=== PATIENT | female | born 1995 | race Caucasian/White ===

== ENCOUNTER 2016-08-27 05:17 | Emergency (ER) | payer OTHER ==
[2016-08-27 05:36] VITALS: PULSE 87; RESP 18; TEMP 97.9
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
[2016-08-27 06:34] VITALS: BP 126/68
--- NOTE | 2016-08-27 06:40 | XR ---
EXAM: XR Right Shoulder Complete, 2 or More Views CLINICAL HISTORY: injury TECHNIQUE: Two or more views of the right shoulder. COMPARISON: No relevant prior studies available. FINDINGS: Bones/joints: Unremarkable. No acute fracture. No dislocation. Soft tissues: Unremarkable. IMPRESSION: Normal right shoulder x-rays.
== END 2016-08-27 07:15 | disposition home or self-care (01) ==
LOC: EC 05:17
DX: S49.91XA Unspecified injury of right shoulder and upper arm, initial encounter (principal); V86.59XA Driver of other special all-terrain or other off-road motor vehicle injured in nontraffic accident, initial encounter; Y92.89 Other specified places as the place of occurrence of the external cause
CPT/HCPCS: 99283

== ENCOUNTER 2016-09-08 08:32 | Inpatient (IN) | payer MEDICAID, OTHER ==
[2016-09-08] MEDS ORDERED: SODIUM CHLORIDE 0.9% 1,000 ML IV STA ×2 (08:42→10:19)
--- NOTE | 2016-09-08 08:48 | ED ---
Psych HPI - General Source: patient, RN notes reviewed Mode of arrival: ambulatory <Sara Scott - Last Filed: 09/08/16 14:32> <Shlomo Justin - Last Filed: 09/08/16 14:52> - General Chief Complaint: Psychiatric Symptoms Stated Complaint: mental health Time Seen by Provider: 09/08/16 08:38 - History of Present Illness Initial Comments: 21-year-old female presents to the emergency department with a chief complaint of overdose in an attempt to kill herself. Patient states that her boyfriend broke up with her left eye and she took some [id number] medication that would help her sleep. Patient does not know how many she took she does not know what it is that she took. Patient states she woke up this morning feeling fine but now she is very jittery and shaky. Patient states that she is no longer suicidal. Patient states she's never tried this in the past. Patient denies any psychiatric history. Patient states she was concerned due to her shakiness this morning so she thought that she should be evaluated. Patient has no idea what it was that she took. Patient denies any recent fever, chills, shortness of breath, chest pain, back pain, abdominal pain, nausea vomiting, numbness or tingling, dysuria or hematuria, constipation or diarrhea, headaches or visual changes, or any other current symptoms. (Sara Scott) - Related Data Home Medications Medication Instructions Recorded Confirmed No Known Home Medications [No 09/08/16 09/08/16 Known Home Medications] Allergies Allergy/AdvReac Type Severity Reaction Status Date / Time No Known Allergies Allergy Verified 09/08/16 09:05 Review of Systems ROS Other: All systems not noted in ROS Statement are negative. <Sara Scott - Last Filed: 09/08/16 14:32> ROS Other: All systems not noted in ROS Statement are negative. <Shlomo Justin - Last Filed: 09/08/16 14:52> ROS Statement: Those systems with pertinent positive or pertinent negative responses have been documented in the HPI. Past Medical History Past Medical History: No Reported History History of Any Multi-Drug Resistant Organisms: None Reported Past Surgical History: No Surgical Hx Reported Past Psychological History: Anxiety, Depression Smoking Status: Current every day smoker Past Alcohol Use History: Occasional Past Drug Use History: Marijuana <Sara Scott - Last Filed: 09/08/16 14:32> General Exam Limitations: no limitations General appearance: alert, in no apparent distress Head exam: Present: atraumatic, normocephalic, normal inspection Eye exam: Present: normal appearance, PERRL, EOMI. Absent: scleral icterus, conjunctival injection, periorbital swelling ENT exam: Present: normal exam, mucous membranes moist Neck exam: Present: normal inspection. Absent: tenderness, meningismus, lymphadenopathy Respiratory exam: Present: normal lung sounds bilaterally. Absent: respiratory distress, wheezes, rales, rhonchi, stridor Cardiovascular Exam: Present: regular rate, tachycardia, normal heart sounds. Absent: systolic murmur, diastolic murmur, rubs, gallop, clicks GI/Abdominal exam: Present: soft, normal bowel sounds. Absent: distended, tenderness, guarding, rebound, rigid Neurological exam: Present: alert, oriented X3, CN II-XII intact. Absent: motor sensory deficit Psychiatric exam: Present: normal affect, normal mood Skin exam: Present: warm, dry, intact, normal color. Absent: rash <Sara Scott - Last Filed: 09/08/16 14:32> Medical Decision Making - Lab Data Result diagrams: 09/08/16 08:55 09/08/16 08:55 - EKG Data -: EKG Interpreted by De - Radiology Data Radiology results: report reviewed, image reviewed <Sara Scott - Last Filed: 09/08/16 14:32> - Lab Data Result diagrams: 09/08/16 08:55 09/08/16 08:55 <Shlomo Justin - Last Filed: 09/08/16 14:52> - Medical Decision Making 19-year-old female presents to the emergency department with a chief complaint of medication overdose. At this time after further conversation to the [facility] patient most likely did have a overdose on a substance of Benadryl. At this time patient's does have a low-grade temp with a mildly elevated white blood cell come. This time we do not have a source for his fever however everything so far does not show any acute process. At this time the patient was not evaluated psychiatry and they are going to be admitted for psychiatry care. ( Sara Scott) Patient was seen by mental health services, who will admit. Patient reevaluated by myself, Dr. Justin. Patient resting comfortably in bed. Abdomen soft and nontender. Patient is unclear why she may have fever. No source of fever evident at this time. Patient is medically stable. Patient does admit to feeling depressed this past week. Patient does admit to taking overdose of medication last night. Positive clinical certificate completed. (Shlomo Justin) - Lab Data Lab Results 09/08/16 09/08/16 09/08/16 Range/Units 08:40 08:40 08:40 WBC (3.8-10.6) k/uL RBC (3.80-5.40) m/uL Hgb (11.4-16.0) gm/dL Hct (34.0-46.0) % MCV (80.0-100.0) fL MCH (25.0-35.0) pg MCHC (31.0-37.0) g/dL RDW (11.5-15.5) % Plt Count (150-450) k/uL Neutrophils % % Lymphocytes % % Monocytes % % Eosinophils % % Basophils % % Neutrophils # (1.3-7.7) k/uL Lymphocytes # (1.0-4.8) k/uL Monocytes # (0-1.0) k/uL Eosinophils # (0-0.7) k/uL Basophils # (0-0.2) k/uL Sodium (137-145) mmol/L Potassium (3.5-5.1) mmol/L Chloride (98-107) mmol/L Carbon Dioxide (22-30) mmol/L Anion Gap mmol/L BUN (7-17) mg/dL Creatinine (0.52-1.04) mg/dL Est GFR (MDRD) Af Amer (>60 ml/min/1.73 sqM) Est GFR (MDRD) Non-Af (>60 ml/min/1.73 sqM) Glucose (74-99) mg/dL Calcium (8.4-10.2) mg/dL Total Bilirubin (0.2-1.3) mg/dL AST (14-36) U/L ALT (9-52) U/L Alkaline Phosphatase (38-126) U/L Creatine Kinase (30-135) U/L CK-MB (CK-2) (0.0-2.4) ng/mL Troponin I (0.000-0.034) ng/mL Total Protein (6.3-8.2) g/dL Albumin (3.5-5.0) g/dL Urine Color Yellow Urine Appearance Clear (Clear) Urine pH 6.5 (5.0-8.0) Ur Specific [place] 1.015 (1.001-1.035) Urine Protein Trace H (Negative) Urine Glucose (UA) Negative (Negative) Urine Ketones Negative (Negative) Urine Blood Negative (Negative) Urine Nitrite Negative (Negative) Urine Bilirubin Negative (Negative) Urine Urobilinogen <2.0 (<2.0) mg/dL Ur Leukocyte Esterase Negative (Negative) Urine HCG, Qual Not Detected (Not Detectd) Salicylates mg/dL Urine Opiates Screen Not Detected (NotDetected) Ur Oxycodone Screen Not Detected (NotDetected) Urine Methadone Screen Not Detected (NotDetected) Ur Propoxyphene Screen Not Detected (NotDetected) Acetaminophen ug/mL Ur Barbiturates Screen Not Detected (NotDetected) U Tricyclic Antidepress Not Detected (NotDetected) Ur Phencyclidine Scrn Not Detected (NotDetected) Ur Amphetamines Screen Detected H (NotDetected) U Methamphetamines Scrn Not Detected (NotDetected) U Benzodiazepines Scrn Not Detected (NotDetected) Urine Cocaine Screen Not Detected (NotDetected) U Marijuana (THC) Screen Detected H (NotDetected) Serum Alcohol mg/dL 09/08/16 09/08/16 09/08/16 Range/Units 08:55 08:55 08:55 WBC 16.0 H (3.8-10.6) k/uL RBC 4.47 (3.80-5.40) m/uL Hgb 12.8 (11.4-16.0) gm/dL Hct 37.9 (34.0-46.0) % MCV 84.7 (80.0-100.0) fL MCH 28.7 (25.0-35.0) pg MCHC 33.9 (31.0-37.0) g/dL RDW 13.1 (11.5-15.5) % Plt Count 350 (150-450) k/uL Neutrophils % 84 % Lymphocytes % 12 % Monocytes % 3 % Eosinophils % 1 % Basophils % 0 % Neutrophils # 13.4 H (1.3-7.7) k/uL Lymphocytes # 1.9 (1.0-4.8) k/uL Monocytes # 0.4 (0-1.0) k/uL Eosinophils # 0.1 (0-0.7) k/uL Basophils # 0.1 (0-0.2) k/uL Sodium 144 (137-145) mmol/L Potassium 4.2 (3.5-5.1) mmol/L Chloride 107 (98-107) mmol/L Carbon Dioxide 21 L (22-30) mmol/L Anion Gap 16 mmol/L BUN 13 (7-17) mg/dL Creatinine 0.82 (0.52-1.04) mg/dL Est GFR (MDRD) Af Amer >60 (>60 ml/min/1.73 sqM) Est GFR (MDRD) Non-Af >60 (>60 ml/min/1.73 sqM) Glucose 99 (74-99) mg/dL Calcium 9.8 (8.4-10.2) mg/dL Total Bilirubin 0.6 (0.2-1.3) mg/dL AST 28 (14-36) U/L ALT 32 (9-52) U/L Alkaline Phosphatase 103 (38-126) U/L Creatine Kinase (30-135) U/L CK-MB (CK-2) 0.5 (0.0-2.4) ng/mL Troponin I <0.012 (0.000-0.034) ng/mL Total Protein 8.8 H (6.3-8.2) g/dL Albumin 5.2 H (3.5-5.0) g/dL Urine Color Urine Appearance (Clear) Urine pH (5.0-8.0) Ur Specific [place] (1.001-1.035) Urine Protein (Negative) Urine Glucose (UA) (Negative) Urine Ketones (Negative) Urine Blood (Negative) Urine Nitrite (Negative) Urine Bilirubin (Negative) Urine Urobilinogen (<2.0) mg/dL Ur Leukocyte Esterase (Negative) Urine HCG, Qual (Not Detectd) Salicylates <1.0 mg/dL Urine Opiates Screen (NotDetected) Ur Oxycodone Screen (NotDetected) Urine Methadone Screen (NotDetected) Ur Propoxyphene Screen (NotDetected) Acetaminophen <10.0 ug/mL Ur Barbiturates Screen (NotDetected) U Tricyclic Antidepress (NotDetected) Ur Phencyclidine Scrn (NotDetected) Ur Amphetamines Screen (NotDetected) U Methamphetamines Scrn (NotDetected) U Benzodiazepines Scrn (NotDetected) Urine Cocaine Screen (NotDetected) U Marijuana (THC) Screen (NotDetected) Serum Alcohol <10 mg/dL 09/08/16 Range/Units 10:18 WBC (3.8-10.6) k/uL RBC (3.80-5.40) m/uL Hgb (11.4-16.0) gm/dL Hct (34.0-46.0) % MCV (80.0-100.0) fL MCH (25.0-35.0) pg MCHC (31.0-37.0) g/dL RDW (11.5-15.5) % Plt Count (150-450) k/uL Neutrophils % % Lymphocytes % % Monocytes % % Eosinophils % % Basophils % % Neutrophils # (1.3-7.7) k/uL Lymphocytes # (1.0-4.8) k/uL Monocytes # (0-1.0) k/uL Eosinophils # (0-0.7) k/uL Basophils # (0-0.2) k/uL Sodium (137-145) mmol/L Potassium (3.5-5.1) mmol/L Chloride (98-107) mmol/L Carbon Dioxide (22-30) mmol/L Anion Gap mmol/L BUN (7-17) mg/dL Creatinine (0.52-1.04) mg/dL Est GFR (MDRD) Af Amer (>60 ml/min/1.73 sqM) Est GFR (MDRD) Non-Af (>60 ml/min/1.73 sqM) Glucose (74-99) mg/dL Calcium (8.4-10.2) mg/dL Total Bilirubin (0.2-1.3) mg/dL AST (14-36) U/L ALT (9-52) U/L Alkaline Phosphatase (38-126) U/L Creatine Kinase 118 (30-135) U/L CK-MB (CK-2) (0.0-2.4) ng/mL Troponin I (0.000-0.034) ng/mL Total Protein (6.3-8.2) g/dL Albumin (3.5-5.0) g/dL Urine Color Urine Appearance (Clear) Urine pH (5.0-8.0) Ur Specific [place] (1.001-1.035) Urine Protein (Negative) Urine Glucose (UA) (Negative) Urine Ketones (Negative) Urine Blood (Negative) Urine Nitrite (Negative) Urine Bilirubin (Negative) Urine Urobilinogen (<2.0) mg/dL Ur Leukocyte Esterase (Negative) Urine HCG, Qual (Not Detectd) Salicylates mg/dL Urine Opiates Screen (NotDetected) Ur Oxycodone Screen (NotDetected) Urine Methadone Screen (NotDetected) Ur Propoxyphene Screen (NotDetected) Acetaminophen ug/mL Ur Barbiturates Screen (NotDetected) U Tricyclic Antidepress (NotDetected) Ur Phencyclidine Scrn (NotDetected) Ur Amphetamines Screen (NotDetected) U Methamphetamines Scrn (NotDetected) U Benzodiazepines Scrn (NotDetected) Urine Cocaine Screen (NotDetected) U Marijuana (THC) Screen (NotDetected) Serum Alcohol mg/dL 09/08/16 09:31 Sinus tachycardia 127 bpm, normal axis, no atopy, no S-T depressions or elevations, (Sara Scott) Disposition <Sara Scott - Last Filed: 09/08/16 14:32> <Shlomo Justin - Last Filed: 09/08/16 14:52> Clinical Impression: Intentional overdose of drug in tablet form, Fever Disposition: TRANSFER TO PSYCH HOSP/UNIT Condition: Stable Referrals: None,Stated [Primary Care Provider] - 1-2 days
[2016-09-08 09:28] LABS: Basophils # (A) 0.1 k/uL (0-0.2); Basophils % (A) 0 %; CH 28.7; Eosinophils # (A) 0.1 k/uL (0-0.7); Eosinophils % (A) 1 %; HCT 37.9 % (34.0-46.0); HDW 2.37; HGB 12.8 gm/dL (11.4-16.0); Luc # (Auto) 0.15; Luc % (Auto) 1; Lymphocytes # (A) 1.9 k/uL (1.0-4.8); Lymphocytes % (A) 12 %; MCH 28.7 pg (25.0-35.0); MCHC 33.9 g/dL (31.0-37.0); MCV 84.7 fL (80.0-100.0); Mean Platelet Volume 7.6; Monocytes # (A) 0.4 k/uL (0-1.0); Monocytes % (A) 3 %; Neutrophils # (A) 13.4 k/uL (1.3-7.7); Neutrophils % (A) 84 %; RBC 4.47 m/uL (3.80-5.40); RDW 13.1 % (11.5-15.5); WBC (Perox) 15.01
[2016-09-08 09:40] LABS: ALT 32 U/L (9-52); AST 28 U/L (14-36); Acetaminophen <10.0 ug/mL; Alcohol <10 mg/dL; Alkaline Phosphatase 103 U/L (38-126); Anion Gap 16 mmol/L; Blood Urea Nitrogen 13 mg/dL (7-17); Calcium 9.8 mg/dL (8.4-10.2); Carbon Dioxide 21 mmol/L (22-30); Chloride 107 mmol/L (98-107); Glucose 99 mg/dL (74-99); Non-African American GFR(MDRD) >60 (>60 ml/min/1.73 sqM); Potassium 4.2 mmol/L (3.5-5.1); Salicylate <1.0 mg/dL; Sodium 144 mmol/L (137-145); Total Bilirubin 0.6 mg/dL (0.2-1.3); Total Protein 8.8 g/dL (6.3-8.2)
[2016-09-08 10:10] LABS: Appearance,Urine Clear (Clear); Bilirubin,Urine Negative (Negative); Glucose,Urine (UA) Negative (Negative); Ketones,Urine Negative (Negative); Leukocyte Esterase,Urine Negative (Negative); Nitrite,Urine Negative (Negative); PH, Urine 6.5 (5.0-8.0); Protein,Urine Trace (Negative); Specific Gravity,Urine 1.015 (1.001-1.035); UA Billing (MACRO vs. MICRO) CHEM; Urobilinogen,Urine <2.0 mg/dL (<2.0)
--- NOTE | 2016-09-08 10:10 | XR ---
EXAMINATION TYPE: XR chest 2V DATE OF EXAM: 09/08/2016 COMPARISON: NONE INDICATION: Cough TECHNIQUE: Frontal and lateral views of the chest are obtained. FINDINGS: The heart size is normal. The pulmonary vasculature is normal. The lungs are clear. IMPRESSION: 1. No acute pulmonary process.
[2016-09-08] MEDS ORDERED: ACETAMINOPHEN TAB 500 MG TAB PO STA (10:19)
[2016-09-08 11:35] LABS: Creatine Kinase MB 0.5 ng/mL (0.0-2.4); Troponin I <0.012 ng/mL (0.000-0.034)
[2016-09-08] MEDS ORDERED: IBUPROFEN 600 MG TAB PO STA (12:04)
[2016-09-08] MEDS ORDERED: ZIPRASIDONE 20 MG VIAL IM PRN (15:26)
[2016-09-08] MEDS ORDERED: MAGNESIUM HYDROXIDE 2,400 MG/10 ML CUP PO PRN (15:26)
[2016-09-08] MEDS ORDERED: ACETAMINOPHEN TAB 325 MG TAB PO PRN (15:26)
[2016-09-08] MEDS ORDERED: LORazepam 1 MG TAB PO PRN (15:26)
[2016-09-08] MEDS ORDERED: MAG HYDROX/AL HYDROX/SIMETH 30 ML CUP PO PRN (15:26)
[2016-09-08] MEDS ORDERED: LORazepam 2 MG/ML SYRINGE IM PRN (15:29)
[2016-09-09] MEDS: NICOTINE 14MG/24HR PATCH TRANSDERM SCH (09:19)
--- NOTE | 2016-09-09 13:10 | P.MDCNMH ---
History of Present Illness H&P Date: 09/09/16 Chief Complaint: Medical management This is a 21-year-old female with no primary care physician. She has a past history of anxiety, depression, tobacco use and dependence. Patient apparently had a breakup with boyfriend yesterday and took an overdose of Benadryl 20 tablets to try to kill herself. She states that she was fighting with her boyfriend and took the pills. She slept during the night and then the next day she was told that she was acting weird. She states she was saying sentences that did not make any sense. She also had shakiness. She denies any suicidal ideation at this time. She came into [facility] emergency center for evaluation. She has not tried suicide in the past. Surprisingly, patient was found to have leukocytosis of 16 and temperature max 100.7. CK was 118, TSH 1.910. Urinalysis was clear with nitrate and leukoesterase negative. HCG was negative. Urine drug screen was positive for amphetamines and marijuana. Salicylate acetaminophen and alcohol levels were within normal limits. Chest x-ray showed no acute findings. Patient was admitted to the mental health unit. No clear etiology for fever and leukocytosis was found. CK was also 118. Review of Systems All systems: negative Constitutional: Denies chills, Denies fever Eyes: denies blurred vision, denies pain Ears, nose, mouth and throat: Denies headache, Denies sore throat Cardiovascular: Denies chest pain, Denies shortness of breath Respiratory: Denies cough Gastrointestinal: Denies abdominal pain, Denies diarrhea, Denies nausea, Denies vomiting Genitourinary: Denies dysuria, Denies hematuria Musculoskeletal: Denies myalgias Integumentary: Denies pruritus, Denies rash Neurological: Denies numbness, Denies weakness Psychiatric: Reports depression, Denies anxiety, Denies hopelessness, Denies suicidal ideation Endocrine: Denies fatigue, Denies weight change Past Medical History Past Medical History: No Reported History History of Any Multi-Drug Resistant Organisms: None Reported Past Surgical History: No Surgical Hx Reported Past Psychological History: Anxiety, Depression Smoking Status: Current every day smoker Past Alcohol Use History: Occasional Additional Past Alcohol Use History / Comment(s): Patient is a smoker of 2 cigarettes per day for one month. She states she uses marijuana occasionally. She also uses alcohol occasionally. Past Drug Use History: Marijuana - Past Family History Father Additional Family Medical History / Comment(s): Father is alive at age 49 with "heart problems ". Mother Additional Family Medical History / Comment(s): Mother is alive at age 47 with no major medical problems. Brother(s) Additional Family Medical History / Comment(s): Patient has 2 brothers and 1 sister with no major medical problems. Patient does not have any children. Medications and Allergies Home Medications Medication Instructions Recorded Confirmed Type No Known Home Medications [No 09/08/16 09/08/16 History Known Home Medications] Allergies Allergy/AdvReac Type Severity Reaction Status Date / Time No Known Allergies Allergy Verified 09/08/16 09:05 Physical Exam Vitals: Vital Signs Temp Pulse Pulse Resp BP BP Pulse Ox 09/09/16 06:32 98.3 F 93 16 135/89 98 09/08/16 16:09 99.4 F 113 H 16 131/91 100 09/08/16 15:09 99.8 F H 106 H 18 120/62 100 09/08/16 11:53 100.7 F H Gen: This is a 21-year-old female. She is cooperative and appears to be in no acute distress. HEENT: Head is atraumatic, normocephalic. Pupils equal, round. Sclerae is anicteric. NECK: Supple. No JVD. No lymphadenopathy. No thyromegaly. LUNGS: Clear to auscultation. No wheezes or rhonchi. No intercostal retractions. HEART: Regular rate and rhythm. No murmur. ABDOMEN: Soft. Bowel sounds are present. No masses. No tenderness. EXTREMITIES: No pedal edema. No calf tenderness. NEUROLOGICAL: Patient is awake, alert and oriented x3. Cranial nerves 2 through 12 are grossly intact. Cranial Nerve Examination - Cranial Nerves Cranial Nerve II- Optic: Intact Cranial Nerve III- Oculomotor: Intact Cranial Nerve IV- Trochlear: Intact Cranial Nerve V- Trigeminal: Intact Cranial Nerve - Abducens: Intact Cranial Nerve VII- Facial: Intact Cranial Nerve VIII- Auditory: Intact Cranial Nerve IX- Glossopharyngeal: Intact Cranial Nerve X- Vagus: Intact Cranial Nerve XI- Accessory: Intact Cranial Nerve XII- Hypoglossal: Intact Results CBC & Chem 7: 09/08/16 08:55 09/08/16 08:55 Assessment and Plan Plan: 1. Depression recurrent. Patient admitted to the mental health unit. Continue current plan of care. 2. Intentional overdose with Benadryl which can cause elevated white count and fever. Patient is currently stable. No signs of infection. A possible viral infection is not completely ruled out. Chest x-ray was normal and she has been afebrile since admission. Continue to monitor fever and recheck CBC in the morning. 3. Tobacco use and dependence. Continue nicotine patch. 4. History of marijuana use. Continue as in #1 . Impression and plan of care have been directed as dictated by the signing physician. Kaitlin Oswald nurse practitioner acting as scribe for signing physician.
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
[2016-09-09] MEDS: GABAPENTIN 100 MG CAP PO SCH ×2 (16:33→21:25)
[2016-09-09] MEDS: PARoxetine 10 MG TAB PO SCH (21:25)
[2016-09-10 05:47] VITALS: RESP 16
[2016-09-10 08:46] LABS: CH 28.3; CHCM 33.4; HCT 35.4 % (34.0-46.0); HDW 2.36; HGB 12.1 gm/dL (11.4-16.0); MCH 29.3 pg (25.0-35.0); MCHC 34.3 g/dL (31.0-37.0); MCV 85.2 fL (80.0-100.0); Mean Platelet Volume 7.4; RBC 4.15 m/uL (3.80-5.40); RDW 13.3 % (11.5-15.5); WBC 10.8 k/uL (3.8-10.6)
[2016-09-10] MEDS: GABAPENTIN 100 MG CAP PO SCH ×3 (08:52→21:02)
[2016-09-10] MEDS: NICOTINE 14MG/24HR PATCH TRANSDERM SCH (08:54)
--- NOTE | 2016-09-10 15:59 | P.PN ---
Progress Note - Text Date of service: 09/11/1999 Chief complaint: "I feel much better today" Subjective: The patient has been seen today as follow-up, chart reviewed, case discussed with the treatment team. The patient reports improvement of her mood and endorsed no suicidal or homicidal thoughts. She reports no depression and continued to endorse future oriented plans to continue counseling with therapist as outpatient. She was hoping to get back to her family at 12 of September holiday. She reports good sleep last night about 8 hrs and report no appetite problems. She reports has good concentration. She reports feeling difference with starting Neurontin and felt her anxiety is better controlled with less racing thoughts. The patient denies any manic symptoms. The patient denies any auditory or visual hallucinations. Also the patient denies any paranoid ideation. Review of other systems: Patient denies any physical symptoms besides what has been mentioned above. No breathing problems, no chest pain reported today. Objective: Vitals has been reviewed. Mental status examination: Appearance: The patient appears stated age, fair hygiene and groomed, no specific features. Gait/posture: Normal gait, Normal arm was swinging: No abnormal movements. Attitude and behavior: engaged, cooperative, normal eye contact. Motor activity: Normal psychomotor activity Speech: Normal rate rhythm and articulation Mood: "feeling good" Affect: Constricted Thought form: goal-directed, linear, coherent. Thought content: Non-delusional, denies suicidal thoughts, denies homicidal thoughts, denies intentions or plans. Perception: Denies any auditory or visual hallucinations Attention: No impairment. Patient was able to repeat serial 7. Orientation: Patient patient was fully oriented to time place person and situation. Insight: Patient has limited insight about his psychiatric disorder. Judgment: Patient has limited judgment about his psychiatric treatment. Assessment: Generalized anxiety disorder Adjustment disorder with mixed depression and anxiety. Unspecified depressive disorder Plan: Continue inpatient level of care to set up after care plan. Patient is showing improvement and stabilization to consider discharge. continue Paxil 10 mg by mouth at bedtime for anxiety and depression symptoms. Inc the Neurontin 100 mg by mouth 3 times a day for anxiety and post acute withdrawal symptoms to help the patient to quit alcohol drinking. Patient has been educated about alcohol use disorder and to monitor her alcohol drinking []
[2016-09-10 20:06] VITALS: BMI 26.4
[2016-09-10] MEDS: PARoxetine 10 MG TAB PO SCH (21:02)
[2016-09-11 06:56] VITALS: BP 117/67; PULSE 92; TEMP 97.7
[2016-09-11] MEDS: NICOTINE 14MG/24HR PATCH TRANSDERM SCH (08:43)
[2016-09-11] MEDS: GABAPENTIN 100 MG CAP PO SCH ×2 (08:43→15:44)
== END 2016-09-11 15:44 | disposition home or self-care (01) | DRG 882 ==
LOC: EC 08:32 → 3MHU 15:07
PROVIDERS: ADMIT Psychiatry & Neurology Psychiatry; ATTEND Psychiatry & Neurology Psychiatry
DX: F43.23 Adjustment disorder with mixed anxiety and depressed mood (principal); F10.239 Alcohol dependence with withdrawal, unspecified; D72.829 Elevated white blood cell count, unspecified; F17.200 Nicotine dependence, unspecified, uncomplicated; F41.0 Panic disorder [episodic paroxysmal anxiety]; Z91.5 Personal history of self-harm
CPT/HCPCS: 36415; 71020; 80053; 80306; 80320; 81003; 81025; 82075; 82550; 82553; 83520; 84443; 84484; 85025; 85027; 93005; 96360; 99285

== ENCOUNTER → 2017-05-07 | Outpatient (CLI) | payer SELFPAY | END | disposition home or self-care (01) | LOC: LABWHC1 15:12 | PROVIDERS: ATTEND Obstetrics & Gynecology | DX: Z34.80 Encounter for supervision of other normal pregnancy, unspecified trimester (principal); Z3A.00 Weeks of gestation of pregnancy not specified | CPT/HCPCS: 36415; 84702 ==

== ENCOUNTER 2017-10-01 11:42 | Outpatient (CLI) | payer BC, OTHER ==
[2017-10-01 12:44] VITALS: BP 130/81; PULSE 87; RESP 16; TEMP 97.3
--- NOTE | 2017-10-05 07:15 | P.MSEPDOC ---
Presenting Problems - Arrival Data Date of Arrival on Unit: 10/01/17 Time of Arrival on Unit: 12:40 Mode of Transport: Ambulatory - Complaint OB-Reason for Admission/Chief Complaint: Possible Onset of Labor Comment: pt reports with contractions every 8 hours Medical History - Information : 2 Para: 0 Term: 0 : 0 Abortions: Spontaneous or Elective: 1 Number of Living Children: 0 - Gestational Age Gestational Age by THO (wks/days): 39 Weeks and 2 Days Review of Systems - Review of Systems Constitutional: No problems Breast: No problems ENT: No problems Cardiovascular: No problems Respiratory: No problems Gastrointestinal: No problems Genitourinary: No problems Musculoskeletal: No problems Neurological: No problems Skin: No problems Vital Signs - Temperature Temperature: 97.3 F Temperature Source: Temporal Artery Scan - Pulse Supine Pulse Rate: 87 Pulse Assessment Method: Automatic Cuff - Respirations Respiratory Rate: 16 Oxygen Delivery Method: Room Air - Blood Pressure Left Arm Blood Pressure: 130/81 Blood Pressure Mean: 97 Blood Pressure Source: Automatic Cuff Medical Screen Scoring (Pre) - Cervical Exam Dilation: 0 cm = 0 - Uterine Contractions Frequency: N/A Duration: N/A - Maternal Vital Signs Maternal Temperature: N/A - Pain Assessment Pain Intensity: 0 Pain Management Goal: 0 Pain Duration: 0 - Assessment Baseline FHR: 140 Heart Rate - NICHD Category: Category I (Normal) = 0 - Total Score Total Score (Pre): 0 - Level of Risk Level of Risk: N/A Physician Notification (Pre) - Physician Notified Physician Notified Date: 10/01/17 Physician Notified Time: 12:44 Physician/Practitioner Notifed:: dr brooks New Order Received: Yes - Notification Comment Comment: discharge instructions Disposition - Disposition OB Disposition: Discharge to home Transferred to:: home Discharge Date: 10/01/17 Discharge Time: 12:44 I agree with the RN Medical Screening Exam: Yes Risk & Benefit of care provided described in d/c instruction: Yes Diagnosis: FALSE LABOR AT OR AFTER 37 COMPLETED WEEKS OF GESTATION
== END 2017-10-01 13:32 | disposition home or self-care (01) ==
LOC: FBPOP 11:42
PROVIDERS: ATTEND Obstetrics & Gynecology
DX: O47.1 False labor at or after 37 completed weeks of gestation (principal); Z3A.39 39 weeks gestation of pregnancy
CPT/HCPCS: 59025; 99213

== ENCOUNTER 2017-10-01 23:12 | Inpatient (IN) | payer BC, OTHER ==
[2017-10-02] MEDS ORDERED: METHYLERGONOVINE 0.2 MG/ML 1 ML AMP IM PRN (01:47)
[2017-10-02] MEDS ORDERED: BUTORPHANOL 1 MG/ML 1 ML VIAL IV PRN (01:47)
[2017-10-02] MEDS ORDERED: OXYTOCIN 10 UNIT/ML 1 ML VIAL IM PRN (01:47)
[2017-10-02] MEDS ORDERED: TERBUTALINE 1 MG/ML VIAL SQ PRN (01:47)
[2017-10-02] MEDS ORDERED: LIDOCAINE 1% (PF) 10 MG/ML (30 ML SDV) SQ PRN (01:47)
[2017-10-02] MEDS ORDERED: CARBOPROST TROMETHAMINE 250 MCG/ML 1 ML AMP IM PRN (01:47)
[2017-10-02] MEDS: LACTATED RINGERS 1,000 ML IV SCH ×3 (02:20→10:01)
[2017-10-02 02:30] VITALS: BMI 30.5
[2017-10-02 02:31] LABS: Basophils % (A) 0 %; Eosinophils # (A) 0.2 k/uL (0-0.7); Eosinophils % (A) 2 %; HCT 34.3 % (34.0-46.0); HGB 11.4 gm/dL (11.4-16.0); Lymphocytes % (A) 15 %; MCH 27.1 pg (25.0-35.0); MCHC 33.3 g/dL (31.0-37.0); MCV 81.6 fL (80.0-100.0); Mean Platelet Volume 8.4; Monocytes # (A) 0.7 k/uL (0-1.0); Monocytes % (A) 5 %; Neutrophils # (A) 10.4 k/uL (1.3-7.7); Neutrophils % (A) 77 %; Platelet Count 206 k/uL (150-450); RDW 14.9 % (11.5-15.5); WBC 13.5 k/uL (3.8-10.6)
[2017-10-02] MEDS ORDERED: SODIUM CHLORIDE 0.9% 100 ML BAG ONE (04:49)
[2017-10-02] MEDS ORDERED: ROPIVACAINE 5MG/ML 20ML VIAL ONE (04:49)
[2017-10-02] MEDS ORDERED: fentaNYL (PF) 50 MCG/ML 5 ML AMP ONE (04:49)
[2017-10-02] MEDS: OXYTOCIN 20 UNITS/1000 ML NS 1,000 ML IV SCH (07:15)
[2017-10-02] MEDS ORDERED: ZOLPIDEM 5 MG TAB PO PRN (12:49)
[2017-10-02] MEDS ORDERED: HYDROCORTISONE 2.5% RECTAL CREAM 30 GM TUBE RECTAL PRN (12:49)
[2017-10-02] MEDS ORDERED: LANOLIN CREAM 5 GM TUBE TOPICAL PRN (12:49)
[2017-10-02] MEDS ORDERED: diphenhydrAMINE 25 MG CAP PO PRN (12:49)
[2017-10-02] MEDS ORDERED: HYDROcodone/APAP 7.5-325MG 1 EACH TAB PO PRN (12:49)
[2017-10-02] MEDS ORDERED: BENZOCAINE/MENTHOL SPRAY 1 GM/SPRAY AEROSOL TOPICAL PRN (12:49)
[2017-10-02] MEDS ORDERED: WITCH HAZEL 1 EACH MED..PAD TOPICAL PRN (12:49)
[2017-10-02] MEDS ORDERED: diphenhydrAMINE 50 MG CAP PO PRN (12:49)
[2017-10-02] MEDS ORDERED: diphenhydrAMINE 50 MG/ML 1 ML VIAL IVP PRN ×2 (12:49)
[2017-10-02] MEDS ORDERED: SIMETHICONE 80 MG CHEWABLE PO PRN (12:49)
[2017-10-02] MEDS ORDERED: ACETAMINOPHEN TAB 325 MG TAB PO PRN (12:49)
--- NOTE | 2017-10-02 12:54 | P.PROBDLV ---
Vaginal Delivery Note - . Vaginal Delivery Note: 22-year-old presented at 39 weeks and 3 days in labor. Her cervix was 3 cm dilated when she presented and it changed in triage to 4 cm dilated, 90% effaced, and -2 station. She is hussain every 2-5 minutes. heart tones 135-140 with moderate variability and reactive. She was uncomfortable and did get an epidural for pain management. When she was 6 cm she got an epidural and was comfortable. Amniotomy was performed at 9 AM clear fluid noted. Her cervix was completely dilated at 1210, she pushed, delivered a viable male over intact perineum under epidural anesthesia at 12:35 PM. Head delivered OA, anterior shoulder which was the right shoulder delivered gentle downward guidance followed by posterior shoulder and rest of body. Nose and mouth bulb suctioned, cord clamped and cut, placed on mother's abdomen. Apgars 8, 9, weight 6 lbs. 8 oz. Placenta delivered spontaneously, intact with three-vessel cord at 12:37 PM. Vagina, cervix, and perineum were inspected. First-degree right lateral vaginal laceration was repaired with 3-0 Vicryl. Estimated blood loss 200 mL. Mother and baby in stable condition.
--- NOTE | 2017-10-02 12:59 | P.HPOB ---
History of Present Illness H&P Date: 10/02/17 Chief Complaint: Labor 22-year-old presented at 39 weeks and 3 days in labor. Her cervix changed from 3 cm to 4 centers dilated in triage, 90% effaced, and -2 station. She is hussain every 2-5 minutes. heart tones 130-135 with moderate variability and reactive. Review of Systems All systems: negative Constitutional: Denies chills, Denies fever Eyes: denies blurred vision, denies pain Ears, nose, mouth and throat: Denies headache, Denies sore throat Cardiovascular: Denies chest pain, Denies shortness of breath Respiratory: Denies cough Gastrointestinal: Denies abdominal pain, Denies diarrhea, Denies nausea, Denies vomiting Genitourinary: Denies dysuria, Denies hematuria Musculoskeletal: Denies myalgias Integumentary: Denies pruritus, Denies rash Neurological: Denies numbness, Denies weakness Psychiatric: Denies anxiety, Denies depression Endocrine: Denies fatigue, Denies weight change Past Medical History Past Medical History: No Reported History History of Any Multi-Drug Resistant Organisms: None Reported Past Surgical History: No Surgical Hx Reported Past Psychological History: Anxiety, Depression Smoking Status: Former smoker Past Alcohol Use History: Occasional Additional Past Alcohol Use History / Comment(s): Patient is a smoker of 2 cigarettes per day for one month. She states she uses marijuana occasionally. She also uses alcohol occasionally. Past Drug Use History: Marijuana - Past Family History Father Family Medical History: Chest Pain / Angina Additional Family Medical History / Comment(s): Father is alive at age 49 with "heart problems ". Mother Family Medical History: No Reported History Additional Family Medical History / Comment(s): Mother is alive at age 47 with no major medical problems. Brother(s) Family Medical History: No Reported History Additional Family Medical History / Comment(s): Patient has 2 brothers and 1 sister with no major medical problems. Patient does not have any children. Medications and Allergies Home Medications Medication Instructions Recorded Confirmed Type Pnv No.95/Ferrous Fum/Folic AC 1 each PO DAILY 10/01/17 10/01/17 History [ Multivitamin Tablet] Sertraline [Zoloft] 50 mg PO DAILY 10/01/17 10/01/17 History Allergies Allergy/AdvReac Type Severity Reaction Status Date / Time No Known Allergies Allergy Verified 10/01/17 23:24 Exam Osteopathic Statement: *. No significant issues noted on an osteopathic structural exam other than those noted in the History and Physical/Consult. Vital Signs Temp Pulse Resp BP Pulse Ox 10/02/17 01:46 98.6 F 88 16 124/86 97 Intake and Output 10/01/17 10/02/17 10/02/17 22:59 06:59 14:59 Other: # Voids 1 Weight 75.75 kg Heart: Regular rate and rhythm Lungs: Clear to auscultation bilaterally Abdomen: Soft, nontender Extremities: Negative Homans sign Results Result Diagrams: 10/02/17 02:15 Abnormal Lab Results - Last 24 Hours (Table) 10/02/17 Range/Units 02:15 WBC 13.5 H (3.8-10.6) k/uL Neutrophils # 10.4 H (1.3-7.7) k/uL Assessment and Plan (1) Normal labor Current Visit: Yes Status: Acute Code(s): O80 - ENCOUNTER FOR FULL-TERM UNCOMPLICATED DELIVERY; Z37.9 - OUTCOME OF DELIVERY, UNSPECIFIED SNOMED Code(s ): 33152736 Plan: 1. Admit to family place 2. Expectant management 3. Anticipate normal vaginal delivery
[2017-10-02] MEDS ORDERED: OXYTOCIN 20 UNITS/1000 ML NS 1,000 ML IV SCH (13:00)
[2017-10-02 17:42] VITALS: RESP 16
[2017-10-03] MEDS: IBUPROFEN 600 MG TAB PO PRN ×2 (00:10→12:26)
[2017-10-03] MEDS: SENNOSIDES-DOCUSATE SODIUM 1 EACH TAB PO SCH ×2 (00:11→09:55)
[2017-10-03] MEDS: OXYTOCIN 20 UNITS/1000 ML NS 1,000 ML IV SCH (05:40)
--- NOTE | 2017-10-03 08:50 | P.DS ---
Providers Date of admission: 10/02/17 01:45 Expected date of discharge: 10/03/17 Attending physician: Naye Lilly Primary care physician: Stated None - Discharge Diagnosis(es) (1) Normal labor Current Visit: Yes Status: Resolved (2) Normal vaginal delivery Current Visit: Yes Status: Acute Hospital Course: Patient presented in active labor. She underwent normal vaginal delivery. Her course was uncomplicated. She'll be discharged home day # 1 in stable condition to follow-up with me in 6 weeks. We reviewed signs and symptoms of depression and she is going home on the Zoloft she has been taking throughout the . She knows that she can call at any time for health depression or any increase in bleeding or fever and chills. She denies nausea, vomiting, chest pain, shortness of breath or calf pain. Plan - Discharge Summary New Discharge Prescriptions: New Ibuprofen [Motrin] 600 mg PO Q6HR PRN #30 tab PRN Reason: Mild Pain Or Fever >= 100.5 Continue Sertraline [Zoloft] 50 mg PO DAILY #30 tab No Action Pnv No.95/Ferrous Fum/Folic AC [ Multivitamin Tablet] 1 each PO DAILY Discharge Medication List Pnv No.95/Ferrous Fum/Folic AC [ Multivitamin Tablet] 1 each PO DAILY [History] Ibuprofen [Motrin] 600 mg PO Q6HR PRN #30 tab 10/03/17 [Rx] Sertraline [Zoloft] 50 mg PO DAILY #30 tab 10/03/17 [Rx] Follow up Appointment(s)/Referral(s): Naye Lilly DO [Doctor of Osteopathic Medicine] - 6 Weeks Discharge Disposition: HOME SELF-CARE
[2017-10-03 09:55] VITALS: BP 114/73; TEMP 97.9
--- NOTE | 2017-10-05 07:14 | P.MSEPDOC ---
Presenting Problems - Arrival Data Date of Arrival on Unit: 10/02/17 Time of Arrival on Unit: 02:01 Mode of Transport: Wheelchair - Complaint OB-Reason for Admission/Chief Complaint: Possible Onset of Labor Comment: Dr Bangura on unit after c/s of another pt. Gave orders to re-check cervix in 1 hour, pt may stay another hour and walk if no change Medical History - Information : 2 Para: 0 Term: 0 : 0 Abortions: Spontaneous or Elective: 0 Number of Living Children: 0 - Gestational Age Gestational Age by THO (wks/days): 39 Weeks and 3 Days Review of Systems - Review of Systems Constitutional: No problems Breast: No problems ENT: No problems Cardiovascular: No problems Respiratory: No problems Gastrointestinal: No problems Genitourinary: No problems Musculoskeletal: No problems Neurological: No problems Skin: No problems Vital Signs - Temperature Temperature: 97.9 F Temperature Source: Oral - Pulse Right Supine Brachial Pulse Rate: 101 Pulse Assessment Method: Automatic Cuff Right Brachial Pulse Rate: 81 Pulse Assessment Method: Automatic Cuff - Respirations Respiratory Rate: 16 Oxygen Delivery Method: Room Air - Blood Pressure Right Arm Supine Blood Pressure: 114/73 Blood Pressure Mean: 86 Blood Pressure Source: Automatic Cuff Medical Screen Scoring (Pre) - Cervical Exam Dilation: 1-3 cm = 1 Effacement: More than 50% = 2 Membranes: Intact - Uterine Contractions Frequency: > 5 minutes apart = 1 Duration: > 40 seconds = 2 - Maternal Vital Signs Maternal Temperature: N/A Maternal Blood Pressure: N/A Signs of Preeclampsia: N/A Maternal Respirations: N/A - Pain Assessment Pain Location and Character: Medial, Abdomen Pain Scale Used: Numeric (1 - 10) Pain Intensity: 8 Pain Description: *Acute, Cramping Pain Frequency: Intermittent Pain Duration: 3 Pain Duration Units: Hours Pain Behavior: Fidgeting Effects of Pain: labor Pain Aggravating Factors: Contractions - Maternal Trauma Maternal Trauma: N/A - Assessment Baseline FHR: 125 Heart Rate - NICHD Category: Category I (Normal) = 0 NST: Reactive - Total Score Total Score (Pre): 6 - Level of Risk Level of Risk: Medium (6-9) Physician Notification (Pre) - Physician Notified Physician Notified Date: 10/02/17 Physician Notified Time: 01:45 Physician/Practitioner Notifed:: Dr Bangura Spoke With: Dr Bangura New Order Received: Yes - Notification Comment Comment: admit for labor Disposition - Disposition OB Disposition: Admit, LDRP Suite Transferred to:: suite 12 Discharge Date: 10/03/17 Discharge Time: 15:45 I agree with the RN Medical Screening Exam: Yes Risk & Benefit of care provided described in d/c instruction: Yes Diagnosis: ENCOUNTER FOR FULL-TERM UNCOMPLICATED DELIVERY
[2017-10-05 07:15] VITALS: PULSE 101
== END 2017-10-03 15:45 | disposition home or self-care (01) | DRG 775 ==
LOC: FBPOP 23:12 → 4FBP 10-02 01:45
PROVIDERS: ADMIT Obstetrics & Gynecology; ATTEND Obstetrics & Gynecology
PROC: 10E0XZZ Delivery of Products of Conception, External Approach (ICD-10-PCS; principal; 2017-10-02)
PROC: 0KQM0ZZ Repair Perineum Muscle, Open Approach (ICD-10-PCS; 2017-10-02)
PROC: 00HU33Z Insertion of Infusion Device into Spinal Canal, Percutaneous Approach (ICD-10-PCS; 2017-10-02)
PROC: 3E0R3BZ Introduction of Anesthetic Agent into Spinal Canal, Percutaneous Approach (ICD-10-PCS; 2017-10-02)
DX: O71.4 Obstetric high vaginal laceration alone (principal); Z37.0 Single live birth; Z3A.39 39 weeks gestation of pregnancy; O99.344 Other mental disorders complicating childbirth; F41.9 Anxiety disorder, unspecified; F32.9 Major depressive disorder, single episode, unspecified; O99.334 Smoking (tobacco) complicating childbirth; F17.210 Nicotine dependence, cigarettes, uncomplicated; Z79.899 Other long term (current) drug therapy; Z82.49 Family history of ischemic heart disease and other diseases of the circulatory system
CPT/HCPCS: 59025; 85025; 99213

== ENCOUNTER → 2017-12-04 | Outpatient (CLI) | payer OTHER | END | disposition home or self-care (01) | LOC: LABWHC1 14:51 | PROVIDERS: ATTEND Obstetrics & Gynecology | DX: N92.6 Irregular menstruation, unspecified (principal) | CPT/HCPCS: 36415; 84702 ==

== ENCOUNTER → 2017-12-06 | Outpatient (CLI) | payer SELFPAY | END | disposition home or self-care (01) | LOC: LABWHC1 16:30 | PROVIDERS: ATTEND Obstetrics & Gynecology | DX: N92.6 Irregular menstruation, unspecified (principal) | CPT/HCPCS: 36415; 84702 ==

== ENCOUNTER → 2017-12-10 | Outpatient (CLI) | payer OTHER | LOC: LABWHC1 15:00 | PROVIDERS: ATTEND Obstetrics & Gynecology | DX: Z34.80 Encounter for supervision of other normal pregnancy, unspecified trimester (principal); Z3A.00 Weeks of gestation of pregnancy not specified | CPT/HCPCS: 36415; 84702 ==

== ENCOUNTER 2019-05-31 05:13 | Inpatient (IN) | payer BC, OTHER ==
[2019-05-31] MEDS ORDERED: LIDOCAINE 0.5% (PF) 5 MG/ML (50 ML SDV) SQ PRN (06:33)
[2019-05-31] MEDS ORDERED: METHYLERGONOVINE 0.2 MG/ML 1 ML AMP IM PRN (06:33)
[2019-05-31] MEDS ORDERED: CARBOPROST TROMETHAMINE 250 MCG/ML 1 ML AMP IM PRN (06:33)
[2019-05-31] MEDS ORDERED: OXYTOCIN 10 UNIT/ML 1 ML VIAL IM PRN (06:33)
[2019-05-31] MEDS ORDERED: TERBUTALINE 1 MG/ML VIAL SQ PRN (06:33)
[2019-05-31 07:20] LABS: Basophils % (A) 0 %; Eosinophils # (A) 0.4 k/uL (0-0.7); Eosinophils % (A) 3 %; HCT 36.7 % (34.0-46.0); HGB 11.9 gm/dL (11.4-16.0); Lymphocytes # (A) 2.7 k/uL (1.0-4.8); Lymphocytes % (A) 19 %; MCH 26.2 pg (25.0-35.0); MCHC 32.3 g/dL (31.0-37.0); MCV 81.1 fL (80.0-100.0); Mean Platelet Volume 9.4; Monocytes # (A) 0.6 k/uL (0-1.0); Monocytes % (A) 4 %; Neutrophils % (A) 72 %; Platelet Count 231 k/uL (150-450); RBC 4.52 m/uL (3.80-5.40); RDW 15.4 % (11.5-15.5)
[2019-05-31] MEDS ORDERED: fentaNYL (PF) 50 MCG/ML 5 ML AMP ONE (07:36)
[2019-05-31] MEDS ORDERED: SODIUM CHLORIDE 0.9% 100 ML BAG ONE (07:36)
[2019-05-31] MEDS ORDERED: ROPIVACAINE 5MG/ML 20ML VIAL ONE (07:36)
[2019-05-31] MEDS: LACTATED RINGERS 1,000 ML IV SCH ×3 (07:40→23:36)
[2019-05-31] MEDS: OXYTOCIN 30 UNITS/500 ML NS 30 UNIT in SALINE 1 500ML.BAG IV SCH (12:12)
[2019-05-31] MEDS ORDERED: CITRIC ACID-SODIUM CITRATE 15 ML CUP PO ONE (16:29)
[2019-05-31] MEDS ORDERED: MORPHINE SULFATE (PF) 0.3 MG/0.3 ML SYR ONE (17:02)
[2019-05-31] MEDS ORDERED: KETOROLAC 30 MG/ML 1 ML VIAL ONE (17:02)
[2019-05-31] MEDS ORDERED: ONDANSETRON 4 MG/2 ML VIAL ONE (17:02)
[2019-05-31] MEDS ORDERED: OXYTOCIN 10 UNIT/ML 1 ML VIAL ONE (17:02)
[2019-05-31] MEDS ORDERED: NALOXONE 0.4 MG/ML 1 ML VIAL IV PRN ×2 (17:51→17:56)
[2019-05-31] MEDS ORDERED: ONDANSETRON 4 MG/2 ML VIAL IVP PRN ×2 (17:51→17:56)
[2019-05-31] MEDS ORDERED: NALBUPHINE 10 MG/ML (1 ML AMP) IV PRN (17:51)
[2019-05-31] MEDS ORDERED: diphenhydrAMINE 50 MG/ML 1 ML VIAL IVP PRN ×3 (17:51→17:56)
[2019-05-31] MEDS ORDERED: METOCLOPRAMIDE 5 MG/ML 2 ML VIAL IVP PRN (17:56)
[2019-05-31] MEDS ORDERED: IBUPROFEN 600 MG TAB PO PRN (17:56)
[2019-05-31] MEDS ORDERED: diphenhydrAMINE 25 MG CAP PO PRN (17:56)
[2019-05-31] MEDS ORDERED: diphenhydrAMINE 50 MG CAP PO PRN (17:56)
[2019-05-31] MEDS ORDERED: ACETAMINOPHEN TAB 325 MG TAB PO PRN (17:56)
[2019-05-31] MEDS ORDERED: ZOLPIDEM 5 MG TAB PO PRN (17:56)
--- NOTE | 2019-05-31 17:58 | P.HPOB ---
History of Present Illness H&P Date: 05/31/19 Chief Complaint: Intrauterine at term: Active labor Patient is a 23-year-old G3 3 P1 at 39 weeks 6 days gestation arrives in active labor hussain every 3-5 minutes making cervical change. She initially was dilated to 4 cm and approximately 1 hour later she was dilated to 5 cm and was admitted for labor. She plans epidural for analgesia and ultimately after epidural was placed spontaneous rupture membranes was performed. Her course was unremarkable and she was feeling well at this time. She relates that contractions began early this morning. Pertinent labs O+ blood type Rh and it was negative, rubella immune, hepatitis B surface antigen/RPR/HIV and GBS were all negative. Possibility of Pitocin augmentation of labor. Category 1 tracing is noted. Past Medical History Past Medical History: No Reported History History of Any Multi-Drug Resistant Organisms: None Reported Past Surgical History: No Surgical Hx Reported Past Anesthesia/Blood Transfusion Reactions: No Reported Reaction Past Psychological History: Anxiety, Depression Smoking Status: Former smoker Past Alcohol Use History: Occasional Additional Past Alcohol Use History / Comment(s): Patient is a smoker of 2 cigarettes per day for one month. She states she uses marijuana occasionally. She also uses alcohol occasionally. Past Drug Use History: Marijuana - Past Family History Father Family Medical History: Chest Pain / Angina Additional Family Medical History / Comment(s): Father is alive at age 49 with "heart problems ". Mother Family Medical History: No Reported History Additional Family Medical History / Comment(s): Mother is alive at age 47 with no major medical problems. Brother(s) Family Medical History: No Reported History Additional Family Medical History / Comment(s): Patient has 2 brothers and 1 sister with no major medical problems. Medications and Allergies Home Medications Medication Instructions Recorded Confirmed Type Pnv No.95/Ferrous Fum/Folic AC 1 each PO DAILY 10/01/17 05/31/19 History [ Multivitamin Tablet] Sertraline [Zoloft] 50 mg PO DAILY #30 tab 10/03/17 05/31/19 Rx Allergies Allergy/AdvReac Type Severity Reaction Status Date / Time No Known Allergies Allergy Verified 05/31/19 05:20 Exam Osteopathic Statement: *. No significant issues noted on an osteopathic structural exam other than those noted in the History and Physical/Consult. Vital Signs Temp Pulse Resp BP Pulse Ox 05/31/19 05:21 97.4 F L 100 18 120/83 99 Intake and Output 05/31/19 05/31/19 05/31/19 06:59 14:59 22:59 Other: Weight 79.832 kg - OBG Physical Exam Breast: both: normal (no masses) Abdomen: bowel sounds normal, no diffuse tenderness, no bruit present, no guarding noted, no hepatomegaly, no splenomegaly, no mass Vulva: both: normal Vagina: normal moisture, no discharge Cervix: no lesion, no discharge Uterus: normal size, normal contour Adnexa: both: normal Anus/Rectum: normal perianal skin, no rectal mass, no hemorrhoids, heme negative Results Result Diagrams: 05/31/19 06:52 Abnormal Lab Results - Last 24 Hours (Table) 05/31/19 Range/Units 06:52 WBC 14.0 H (3.8-10.6) k/uL Neutrophils # 10.0 H (1.3-7.7) k/uL
--- NOTE | 2019-05-31 18:03 | P.OP ---
Date of Procedure: 05/31/19 Preoperative Diagnosis: Intrauterine at term: Arrest of dilation and descent: Nonreassuring heart tones Postoperative Diagnosis: Same with asynclitic presentation Procedure(s) Performed: Primary from low transverse Anesthesia: epidural Surgeon: Vikash Roberts Manager Creative Services #1: Boo Herrera Estimated Blood Loss (ml): 500 IV fluids (ml): 1,000 Urine output (ml): 300 Pathology: none sent Condition: stable Disposition: floor Operative Findings: Male scores of 9 and 9 at one and 5 minutes respectively weight was 7 lbs. 2 oz. It is noted that the baby was left occiput transverse and significant asynclitic with the head tilted on an angle. During the process of maneuvering the baby into the incision baby flipped all the way into breech and was delivered from breech presentation without difficulty or competitions Description of Procedure: Patient was taken to the operating suite where a epidural anesthetic was found be adequate. She was prepped and draped in the normal sterile fashion and placed in the dorsal supine position with leftward tilt. Initially a Pfannenstiel skin incision was made and this incision was then carried through to underlying layer of the fashion with second knife. Fascia was then nicked in the midline and this opening was extended laterally with Figueroa scissors. Superior and inferior aspect of this incision were then grasped tented up and bluntly and sharply dissected off the rectus muscles. Rectus muscles were then divided the midline and sharp dissection through the peritoneum was done. This opening was then extended superiorly and inferiorly with good visualization of both bowel bladder. Bladder blade was then placed bladder flap identified and entered with Metzenbaum scissors. This opening was extended across face uterus Metzenbaum scissors and bladder flap was digitally created. Knife was then used to incise uterus and this opening was then fully developed with hemostat and then extended bluntly. As noted previously head was applied to the cervix but remained high in the pelvis attempts to deliver the baby's head into the incision were unsuccessful but during the process of trying to bring his head into the incision the baby rotated on its own and became breech. Buttock was then grasped brought up into the incision line an buttock and body were delivered arms were then swept across face and baby was fully delivered. Mouth nares were then bulb suctioned and the umbilical cord was clamped cut usual fashion. Nursery personnel was present and assumed care. Placenta was then delivered intact and Pitocin was added to the IV. Uterus was then exteriorized cleared of clots and debris and closed in 2 layers with 0 Vicryl suture. Right corner of the incision did have some bleeding and required emergent ruptured stitch suture. Pressure was held for approximately 5 minutes and hemostasis was felt to be obtained. Uterus was then reinserted into the abdomen following suctioning of blood and debris. Again pressure was held on the corner no bleeding is noted however, FloSeal was placed due to where the bleeding was and 1 to verify complete hemostasis along the suture line. Once this was completed instruments removed fascial layer was then closed with with 0 Vicryl suture. One layer of 3-0 Vicryl was placed in the deep subcutaneous tissues to reapproximate skin and close space and skin was then closed with 3-0 Vicryl subcuticular. Sponge, lap, needle counts were all correct 2. Patient was then taken to the recovery room in stable and satisfactory condition.
[2019-05-31] MEDS: HYDROmorphone 0.5 MG/0.5 ML SYRINGE IVP PRN ×2 (18:23→21:05)
[2019-05-31] MEDS: SENNOSIDES-DOCUSATE SODIUM 1 EACH TAB PO SCH (23:36)
[2019-05-31] MEDS: KETOROLAC 30 MG/ML 1 ML VIAL IVP PRN (23:58)
[2019-06-01] MEDS: LACTATED RINGERS 1,000 ML IV SCH ×2 (03:43→04:08)
[2019-06-01] MEDS: HYDROmorphone 0.5 MG/0.5 ML SYRINGE IVP PRN (04:07)
[2019-06-01 05:41] LABS: Basophils % (A) 0 %; Eosinophils # (A) 0.1 k/uL (0-0.7); Eosinophils % (A) 1 %; HCT 29.6 % (34.0-46.0); Lymphocytes % (A) 14 %; MCH 26.5 pg (25.0-35.0); MCHC 32.3 g/dL (31.0-37.0); MCV 81.9 fL (80.0-100.0); Mean Platelet Volume 8.9; Monocytes # (A) 0.6 k/uL (0-1.0); Monocytes % (A) 4 %; Neutrophils # (A) 11.3 k/uL (1.3-7.7); Neutrophils % (A) 80 %; Platelet Count 144 k/uL (150-450); RBC 3.61 m/uL (3.80-5.40); RDW 15.6 % (11.5-15.5); WBC 14.2 k/uL (3.8-10.6)
[2019-06-01 05:54] LABS: HGB 9.6 gm/dL (11.4-16.0)
[2019-06-01] MEDS: KETOROLAC 30 MG/ML 1 ML VIAL IVP PRN ×3 (07:54→19:25)
[2019-06-01] MEDS: SENNOSIDES-DOCUSATE SODIUM 1 EACH TAB PO SCH ×2 (07:55→19:24)
--- NOTE | 2019-06-01 08:43 | P.PNOBGPC ---
Subjective - Subjective Principal diagnosis: Postop day 1 Interval history: Patient is doing very well this morning. She is involuting, voiding and tolerating her diet. She voices no other complaints at this time. Her vital signs are stable and she is afebrile. Patient reports: Reports appetite normal, Reports voiding normally, Reports pain well controlled, Reports ambulating normally : doing well Objective - Vital Signs Latest vital signs: Vital Signs Temp Pulse Resp BP Pulse Ox 06/01/19 08:00 98.5 F 86 14 121/74 06/01/19 03:42 98.3 F 96 16 113/72 96 06/01/19 00:00 98.3 F 99 16 113/65 97 05/31/19 22:51 97 05/31/19 22:00 16 05/31/19 20:51 16 05/31/19 20:39 98.1 F 107 H 18 128/69 98 05/31/19 19:55 96 18 125/63 97 05/31/19 19:35 100 18 132/67 97 05/31/19 19:05 98.8 F 100 16 131/71 05/31/19 18:55 101 H 12 129/75 97 05/31/19 18:50 12 100 05/31/19 18:40 99 12 125/74 98 05/31/19 18:25 93 12 139/77 100 05/31/19 18:10 98.1 F 122 H 12 113/57 100 05/31/19 17:51 12 Intake and Output 05/31/19 06/01/19 06/01/19 22:59 06:59 14:59 Output Total 500 350 Balance -500 -350 Output: Urine 500 350 - Exam Lungs: bilateral: normal Chest: Normal S1, Normal S2 Extremities: Present: normal Abdomen: Present: normal appearance, soft. Absent: distention, tenderness Incision: Present: normal, dry, intact Uterus: Present: normal, firm - Labs Labs: Abnormal Lab Results - Last 24 Hours (Table) 06/01/19 Range/Units 05:14 WBC 14.2 H (3.8-10.6) k/uL RBC 3.61 L (3.80-5.40) m/uL Hgb 9.6 L D (11.4-16.0) gm/dL Hct 29.6 L (34.0-46.0) % RDW 15.6 H (11.5-15.5) % Plt Count 144 L (150-450) k/uL Neutrophils # 11.3 H (1.3-7.7) k/uL
--- NOTE | 2019-06-01 10:13 | P.PN ---
Progress Note - Text Progress Note Date: 06/01/19 23 yo female s/p c/section with epidural administered duramorph. denies pruritis, motor/sensory deficits. ambulating and tolerating diet.
[2019-06-01] MEDS: HYDROcodone/APAP 7.5-325MG 1 EACH TAB PO PRN ×2 (17:09→23:41)
[2019-06-01] MEDS: OXYTOCIN 30 UNITS/500 ML NS 30 UNIT in SALINE 1 500ML.BAG IV SCH (22:30)
[2019-06-02] MEDS: HYDROcodone/APAP 7.5-325MG 1 EACH TAB PO PRN ×2 (07:49→13:12)
[2019-06-02] MEDS: SENNOSIDES-DOCUSATE SODIUM 1 EACH TAB PO SCH ×2 (07:49→08:57)
[2019-06-02 08:55] VITALS: BP 113/67; PULSE 90; RESP 18; TEMP 97.7
--- NOTE | 2019-06-02 08:56 | P.DS ---
Providers Date of admission: 05/31/19 06:32 Expected date of discharge: 06/02/19 Attending physician: Naye Lilly Primary care physician: Stated None Hospital Course: This is a 23-year-old female 3 para 1 at 39-6/7 weeks who presented in active labor. She underwent a primary low transverse section on 05/31/2019 for failure to progress and delivered a viable male with scores of 9 at 1 minute and 9 at 5 minutes and weight of 7 lbs. 2 oz. Her and postoperative course have been uncomplicated. She is passing flatus and bowel movement. She states her pain is improving with ibuprofen and Center. She is working on breast-feeding. Vital signs are stable. Abdomen is soft with fundus firm and nontender. Incision is clean dry and intact. Bowel sounds are present 4. Extremities show negative Homans. Impression is status post primary section postoperative day #2. Plan is to discharge home today. Routine postoperative and instructions are given. She is a dvised to follow up with Dr. Lilly in the office in 1 week. She is given a prescription for ibuprofen and Center. She has signed a start opioid talking form and denies any opioid use at home. She is advised to call the office if she has any further questions or concerns prior to her appointment. Procedures: Primary low transverse section on 05/31/2019 Patient Condition at Discharge: Stable Plan - Discharge Summary New Discharge Prescriptions: New Ibuprofen [Motrin] 600 mg PO Q6HR PRN #60 tab PRN Reason: Mild Pain Or Fever >= 100.5 HYDROcodone/APAP 7.5-325MG [Center 7.5-325] 1 each PO Q6H PRN #42 tab PRN Reason: Severe Pain Continue Pnv No.95/Ferrous Fum/Folic AC [ Multivitamin Tablet] 1 each PO DAILY No Action Sertraline [Zoloft] 50 mg PO DAILY #30 tab Discharge Medication List Pnv No.95/Ferrous Fum/Folic AC [ Multivitamin Tablet] 1 each PO DAILY 10/01/17 [History] Sertraline [Zoloft] 50 mg PO DAILY #30 tab 10/03/17 [Rx] HYDROcodone/APAP 7.5-325MG [Center 7.5-325] 1 each PO Q6H PRN #42 tab 06/02/19 [Rx] Ibuprofen [Motrin] 600 mg PO Q6HR PRN #60 tab 06/02/19 [Rx] Follow up Appointment(s)/Referral(s): Naye Lilly DO [Doctor of Osteopathic Medicine] - 1 Week Activity/Diet/Wound Care/Special Instructions: Instructions 1. Do not begin any exercise program for 3 weeks. 2. Do not resume sexual relations for 3 weeks or longer if uncomfortable. 3. You may take tub baths or showers at any time. 4. You may use tampons if desired after 3 weeks. 5. Keep the area of episiotomy (stitches) clean and dry. 6. If you are not nursing, wear a good fitting, supportive bra during the day and limit fluid intake for at least 1 week to prevent breast engorgement. 7. Call the office, [phone], within the next week to make appointment for your 6 week checkup if it has not already been made. 8. Report any of the following occurrences to the doctor promptly: a. Heavy, excessive bleeding b. Chills, fever c. Burning or frequency of urination d. Pain or redness and breasts if nursing e. Increasing pain or swelling in episiotomy (stitches). In addition to the above instructions, the following additional should be followed: 1. No heavy lifting or straining (exercising) until after 6 week checkup. 2. Keep abdominal incision clean and dry: You may wear a dressing if more comfortable. 3. Make office appointment for 10 days after going home or as instructed by her doctor. Discharge Disposition: HOME SELF-CARE
== END 2019-06-02 14:30 | disposition home or self-care (01) | DRG 788 ==
LOC: FBPOP 05:13 → 4FBP 06:32
PROVIDERS: ADMIT Obstetrics & Gynecology; ATTEND Obstetrics & Gynecology
PROC: 10D00Z1 Extraction of Products of Conception, Low, Open Approach (ICD-10-PCS; principal; 2019-05-31 17:15)
DX: O32.1XX0 Maternal care for breech presentation, not applicable or unspecified (principal); F12.90 Cannabis use, unspecified, uncomplicated; F32.9 Major depressive disorder, single episode, unspecified; F41.9 Anxiety disorder, unspecified; O62.1 Secondary uterine inertia; O76 Abnormality in fetal heart rate and rhythm complicating labor and delivery; O99.344 Other mental disorders complicating childbirth; Z37.0 Single live birth; Z3A.39 39 weeks gestation of pregnancy; Z79.899 Other long term (current) drug therapy; Z87.891 Personal history of nicotine dependence; Z82.49 Family history of ischemic heart disease and other diseases of the circulatory system
CPT/HCPCS: 59025; 84112; 85025; 86850; 86900; 86901; 99213